=== PATIENT | male | born 1995 | race Caucasian/White ===

== ENCOUNTER 2021-11-04 10:30 | Emergency (ER) | payer OTHER, SELFPAY ==
[2021-11-04 10:40] VITALS: BP 118/74; PULSE 69; RESP 18; TEMP 36.3; O2SAT 100; BMI 22.5
== END 2021-11-04 11:57 | disposition home or self-care (01) ==
LOC: ED 10:51
DX: Z53.29 Procedure and treatment not carried out because of patient's decision for other reasons (principal)
CPT/HCPCS: 99281